=== PATIENT | female | born 1935 | race Caucasian/White ===

== ENCOUNTER 2017-04-14 12:11 | Outpatient (CLI) | payer OTHER ==
--- NOTE | 2017-04-14 15:37 | DIAGNOSTIC IMAGING REPORT ---
PROCEDURE: MR UPPER EXTREMITY W/O CONT-RT INDICATION: RIGHT ANTERIOR SHOULDER PAIN TECHNIQUE: PD and FAT-SAT PD, axial, and coronal-oblique images. PD and STIR sagittal-oblique images. COMPARISON: Outside right shoulder x-ray 03/24/2017. FINDINGS: Motion artifacts. Mild AC joints and type 1 acromion resulting in mild impingement. There is thickening and diffuse increased signal of the rotator cuff consistent with tendinosis. There is also a small partial thickness insertional tear of the supraspinatus tendon on the articular side. Associated moderate subacromial and subdeltoid effusions suggest a possible full-thickness tear. There is bicipital tendinosis/partial tear distal to the bicipital notch. Abnormal signal and contour of the superior labrum suggestive of a tear. No suspicious osseous lesions. IMPRESSION: 1. Mild impingement 2. Rotator cuff tendinosis with partial thickness insertional tear of the supraspinatus tendon on the articular side. Subdeltoid and sub acromial effusions suggest a possible full-thickness tear. 3. Bicipital tendinosis/partial tear distal to the bicipital notch 4. Findings suggest a labral tear
== END 2017-04-14 23:00 | disposition home or self-care (01) ==
LOC: MRI SRH 12:11
DX: M75.41 Impingement syndrome of right shoulder (principal); M75.101 Unspecified rotator cuff tear or rupture of right shoulder, not specified as traumatic; M75.21 Bicipital tendinitis, right shoulder